=== PATIENT | male | born 1945 | race Two or more races ===

== ENCOUNTER 2019-08-24 10:15 | Day surgery (SDC) | payer OTHER ==
[~2019-08-24] VITALS: Ht 165.1 cm; Wt 77.1 kg
[2019-08-24] MEDS ORDERED: ALPR0.5T2 PO (11:15)
[2019-08-24] MEDS ORDERED: SIMV10TA1 PO (11:15)
[2019-08-24] MEDS ORDERED: AMLO1CAP4 PO (11:15)
[2019-08-24] MEDS ORDERED: TADA5TAB PO (11:15)
[2019-08-24] MEDS ORDERED: fentaNYL 0.05 MG/ML VIAL ONE (11:24)
[2019-08-24] MEDS ORDERED: MIDAZOLAM 2 MG/2 ML VIAL ONE (11:25)
[2019-08-24] MEDS ORDERED: LIDOCAINE 2% 100 MG/5 ML UJET TP ONE (11:53)
== END 2019-08-24 12:40 | disposition home or self-care (01) ==
LOC: MDS 10:15 → MMU 10:15 → MDS 12:40
PROVIDERS: ATTEND Internal Medicine Gastroenterology
DX: R13.10 Dysphagia, unspecified (principal); K64.8 Other hemorrhoids; K20.9 Esophagitis, unspecified; K44.9 Diaphragmatic hernia without obstruction or gangrene; I10 Essential (primary) hypertension; E78.00 Pure hypercholesterolemia, unspecified; Z98.890 Other specified postprocedural states
CPT/HCPCS: 43235; 45330; J2250; J3010